=== PATIENT | male | born 2000 | race Caucasian/White ===

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

== ENCOUNTER → 2021-04-29 | Outpatient (CLI) | payer OTHER ==
--- NOTE | 2021-04-30 08:39 | XR ---
EXAMINATION TYPE: XR chest 2V DATE OF EXAM: 04/29/2021 COMPARISON: 04/29/2021 INDICATION: Right lower axillary rib pain TECHNIQUE: Frontal and lateral views of the chest are obtained. FINDINGS: The heart size is normal. The pulmonary vasculature is normal. The lungs are clear. No pneumothorax is evident. The osseous structures visualized in this exam appe ar intact. IMPRESSION: 1. No acute pulmonary process. 2. No pneumothorax is evident.
--- NOTE | 2021-04-30 08:40 | XR ---
EXAMINATION TYPE: XR ribs RT DATE OF EXAM: 04/29/2021 COMPARISON: Chest x-ray HISTORY: Pain right ribs after injury TECHNIQUE: 2 view right ribs FINDINGS: No acute displaced fractures are evident. Pneumothorax images. Follow up exams can be performed 7-10 days from acute trauma for continued pain. IMPRESSION: 1. Normal right ribs
== END | disposition home or self-care (01) ==
LOC: RADXRMAIN 17:09
PROVIDERS: ATTEND Emergency Medicine
DX: R07.81 Pleurodynia (principal); S29.9XXA Unspecified injury of thorax, initial encounter
CPT/HCPCS: 71046